=== PATIENT | male | born 1950 | race African-American/Black ===

== ENCOUNTER 2020-12-13 11:03 | Emergency (ER) | payer OTHER ==
[~2020-12-13] VITALS: Ht 190.5 cm; Wt 90.0 kg
[~2020-12-13 11:03] MED LIST: AMLO5TAB88; CITA40TA11; CYCL7.5T25; GABA-529; HYDR25TA; PRAZ5CAP2; SIMV-43
[2020-12-13 12:27] LABS: BASOPHILS % 0.6 % (0.0-2.0); CHLORIDE 104 mEq/L (98-107); EOSINOPHILS % 0.1 % (0.0-5.0); HEMATOCRIT. 39.7 % (42.0-52.0); HEMOGLOBIN. 13.5 g/dL (14.0-18.0); MEAN CORPUSCULAR HEMOGLOBIN 26.7 pg (28.0-32.0); MEAN CORPUSCULAR VOLUME 78.8 fL (80.0-94.0); MEAN PLATELET VOLUME 8.2 fl (7.4-10.4); MONOCYTES % 0.8 % (2.0-8.0); NEUTROPHILS % 70.5 % (40.0-76.0); PLATELET 186 x1000/uL (130-400); RED BLOOD CELL COUNT 5.04 mill/uL (4.7-6.1); RED CELL DISTRIBUTION WIDTH 13.9 % (11.6-14.6)
[2020-12-13 14:17] VITALS: BP 137/70
== END 2020-12-13 14:23 | disposition home or self-care (01) ==
LOC: ER 11:30
DX: R55 Syncope and collapse (principal); I10 Essential (primary) hypertension; Z88.0 Allergy status to penicillin; Z79.899 Other long term (current) drug therapy; Z85.118 Personal history of other malignant neoplasm of bronchus and lung
CPT/HCPCS: 36415; 71045; 80053; 83880; 84484; 85025; 93005; 99285

== ENCOUNTER 2020-12-16 13:01 | Inpatient (IN) | payer MEDICARE, OTHER ==
[~2020-12-16] VITALS: Ht 182.9 cm; Wt 90.3 kg
[2020-12-16] MEDS ORDERED: SODIUM CHLORIDE 0.9% 1,000 ML IV ONE (13:30)
[2020-12-16 14:07] LABS: CHLORIDE 99 mEq/L (98-107)
[2020-12-16 14:10] LABS: PROTHROMBIN TIME 10.3 sec (9.6-11.0)
[2020-12-16 14:12] LABS: EOSINOPHILS % 0.2 % (0.0-5.0); HEMATOCRIT. 34.4 % (42.0-52.0); HEMOGLOBIN. 11.8 g/dL (14.0-18.0); LYMPHOCYTES % 26.5 % (20.0-50.0); MEAN CORPUSCULAR HEMOGLOBIN 26.6 pg (28.0-32.0); MEAN CORPUSCULAR VOLUME 77.8 fL (80.0-94.0); MEAN PLATELET VOLUME 9.1 fl (7.4-10.4); MONOCYTES % 2.1 % (2.0-8.0); NEUTROPHILS % 70.2 % (40.0-76.0); PLATELET 141 x1000/uL (130-400); RED BLOOD CELL COUNT 4.43 mill/uL (4.7-6.1); RED CELL DISTRIBUTION WIDTH 13.9 % (11.6-14.6)
[2020-12-16] MEDS ORDERED: POTASSIUM CHLORIDE 20MEQ TABLET SR PO ONE (14:30)
[2020-12-16] MEDS ORDERED: POTASSIUM CHLORIDE INJ 40 MEQ in DEXT 5% WATER 250 ML IV ONE (14:30)
[2020-12-16] MEDS: SODIUM CHLORIDE 0.9% 1,000 ML IV SCH (16:45)
[2020-12-16] MEDS ORDERED: TRAMADOL 50MG TABLET PO PRN (16:45)
[2020-12-16] MEDS ORDERED: ONDANSETRON HCL 4MG/2ML INJ IV PRN (16:45)
[2020-12-16] MEDS ORDERED: NITROGLYCERIN 0.4MG TABLET SL SL PRN (16:45)
[2020-12-16] MEDS ORDERED: IPRATROPIUM/ALBUTEROL 0.5-3(2.5)MG/3ML NEB NEB PRN (16:45)
[2020-12-16] MEDS ORDERED: ACETAMINOPHEN 325MG TABLET PO PRN ×2 (16:45)
[2020-12-16] MEDS ORDERED: MAGNESIUM/ALUMINUM HYDROXIDE/SIMETHICONE 30ML UDC PO PRN (16:45)
[2020-12-16] MEDS ORDERED: DOCUSATE SODIUM 100MG CAPSULE PO PRN (16:45)
[2020-12-16] MEDS ORDERED: GUAIFENESIN 200MG/10ML SUGAR FREE UDC PO PRN (16:45)
[2020-12-16] MEDS ORDERED: ZOLPIDEM TARTRATE 5MG TABLET PO PRN (16:45)
[2020-12-16 17:09] LABS: T4 FREE 1.24 ng/dL (0.76-1.46)
[2020-12-16 17:40] LABS: VITAMIN B12 SERUM 397 pg/mL (211-911)
[2020-12-16 17:49] LABS: FOLIC ACID (FOLATE) SERUM > 20.00 ng/mL (>5.38)
[2020-12-16] MEDS: ENOXAPARIN 40MG/0.4ML SYR SUBCUT SCH (18:16)
[2020-12-16] MEDS: ASCORBIC ACID 500 MG TABLET PO SCH (21:38)
[2020-12-16 22:15] VITALS: BP 143/74
[2020-12-17] VITALS: BP 136/52
[2020-12-17 01:12] LABS: CREATINE KINASE 159 IU/L (39-308)
[2020-12-17 01:13] LABS: CREATINE KINASE MB FRACTION < 1.0 ng/mL (0.5-3.6)
[2020-12-17] MEDS: SODIUM CHLORIDE 0.9% 1,000 ML IV SCH ×2 (02:08→21:10)
[2020-12-17 04:00] VITALS: BP 126/56
[2020-12-17 06:21] LABS: HEMATOCRIT. 32.6 % (42.0-52.0); HEMOGLOBIN. 11.2 g/dL (14.0-18.0); MEAN CORPUSCULAR HEMOGLOBIN 26.7 pg (28.0-32.0); MEAN CORPUSCULAR VOLUME 77.4 fL (80.0-94.0); MEAN PLATELET VOLUME 8.9 fl (7.4-10.4); PLATELET 138 x1000/uL (130-400); RED BLOOD CELL COUNT 4.21 mill/uL (4.7-6.1); RED CELL DISTRIBUTION WIDTH 14.2 % (11.6-14.6)
[2020-12-17 06:27] LABS: CHLORIDE 102 mEq/L (98-107)
[2020-12-17 06:39] LABS: PHOSPHORUS 2.1 mg/dL (2.5-4.9)
[2020-12-17 06:40] LABS: CREATINE KINASE 158 IU/L (39-308)
[2020-12-17 06:44] LABS: CREATINE KINASE MB FRACTION < 1.0 ng/mL (0.5-3.6)
[2020-12-17] MEDS ORDERED: TIOT4MIS3 IH (07:09)
[2020-12-17] MEDS ORDERED: TRAZ-252 PO (07:09)
[2020-12-17 08:00] VITALS: BP 149/74
[2020-12-17] MEDS: CLOPIDOGREL 75MG TABLET PO SCH (09:27)
[2020-12-17] MEDS: ZINC SULFATE 220 MG ( 50 ) CAPSULE PO SCH (09:27)
[2020-12-17] MEDS: PANTOPRAZOLE SODIUM 40 MG/VIAL IV SCH (09:27)
[2020-12-17] MEDS: CHOLECALCIFEROL (D3) 1000 UNIT TABLET PO SCH (09:28)
[2020-12-17] MEDS: ASCORBIC ACID 500 MG TABLET PO SCH ×2 (09:28→21:10)
[2020-12-17] MEDS ORDERED: POTASSIUM PHOS,M-BASIC-D-BASIC 20 MMOL in DEXT 5% WATER 243.3333 ML IV SCH (11:00)
[2020-12-17 12:00] VITALS: BP 138/77
[2020-12-17 12:52] LABS: NUCLEATED RED BLOOD CELLS 1 /100 WBC; PLATELET ESTIMATE NORMAL
[2020-12-17] MEDS ORDERED: KCL 20MEQ/100ML PREMIX 100 ML IV SCH (15:00)
[2020-12-17 16:00] VITALS: BP 165/75
[2020-12-17] MEDS: ENOXAPARIN 40MG/0.4ML SYR SUBCUT SCH (17:04)
[2020-12-17] MEDS: CLONIDINE 0.1MG TABLET PO PRN (17:05)
[2020-12-17 20:00] VITALS: BP 146/76
[2020-12-17] MEDS ORDERED: FILGRASTIM 300 MCG/ML VIAL SUBCUT SCH (21:00)
[2020-12-17] MEDS: FILGRASTIM-TBO 300 MCG/0.5 ML SYRINGE SQ SCH (21:28)
[2020-12-18] VITALS: BP 124/77
[2020-12-18 04:00] VITALS: BP 117/60
[2020-12-18 06:15] LABS: CHLORIDE 107 mEq/L (98-107)
[2020-12-18 06:24] LABS: PHOSPHORUS 2.5 mg/dL (2.5-4.9)
[2020-12-18 06:27] LABS: HEMOGLOBIN. 11.1 g/dL (14.0-18.0); MEAN CORPUSCULAR HEMOGLOBIN 26.2 pg (28.0-32.0); MEAN CORPUSCULAR VOLUME 78.2 fL (80.0-94.0); MEAN PLATELET VOLUME 8.5 fl (7.4-10.4); RED BLOOD CELL COUNT 4.22 mill/uL (4.7-6.1); RED CELL DISTRIBUTION WIDTH 13.9 % (11.6-14.6)
[2020-12-18] MEDS: PANTOPRAZOLE SODIUM 40 MG/VIAL IV SCH (08:25)
[2020-12-18] MEDS: ZINC SULFATE 220 MG ( 50 ) CAPSULE PO SCH (08:25)
[2020-12-18] MEDS: CHOLECALCIFEROL (D3) 1000 UNIT TABLET PO SCH (08:25)
[2020-12-18] MEDS: CLOPIDOGREL 75MG TABLET PO SCH (08:25)
[2020-12-18] MEDS: ASCORBIC ACID 500 MG TABLET PO SCH ×2 (08:25→20:28)
[2020-12-18 12:00] VITALS: BP 148/74
[2020-12-18] MEDS: SODIUM CHLORIDE 0.9% 1,000 ML IV SCH ×2 (12:16→22:05)
[2020-12-18 16:00] VITALS: BP 151/61
[2020-12-18 16:36] LABS: PLATELET ESTIMATE NORMAL
[2020-12-18 16:40] LABS: PLATELET 155 x1000/uL (130-400)
[2020-12-18] MEDS: ENOXAPARIN 40MG/0.4ML SYR SUBCUT SCH (17:07)
[2020-12-18 20:00] VITALS: BP 163/71
[2020-12-18] MEDS: CLONIDINE 0.1MG TABLET PO PRN (20:27)
[2020-12-18] MEDS: FAMOTIDINE 20MG/2ML VIAL IV SCH (21:00)
[2020-12-18] MEDS: FILGRASTIM-TBO 300 MCG/0.5 ML SYRINGE SQ SCH (22:15)
[2020-12-19] VITALS: BP 133/56
[2020-12-19 04:00] VITALS: BP 155/75
[2020-12-19 08:14] VITALS: BP 162/74
[2020-12-19] MEDS: CLOPIDOGREL 75MG TABLET PO SCH (08:56)
[2020-12-19] MEDS: CHOLECALCIFEROL (D3) 1000 UNIT TABLET PO SCH (08:56)
[2020-12-19] MEDS: ASCORBIC ACID 500 MG TABLET PO SCH (08:56)
[2020-12-19] MEDS: ZINC SULFATE 220 MG ( 50 ) CAPSULE PO SCH (08:56)
[2020-12-19] MEDS: FAMOTIDINE 20MG/2ML VIAL IV SCH (09:19)
[2020-12-19 10:07] VITALS: BP 162/74
== END 2020-12-19 12:07 | disposition home or self-care (01) | DRG 64 ==
LOC: ER 14:08 → 6WST 15:08 → EDBEDREQTM 15:10 → EDBEDREQ 15:10 → ENRESERV 21:11 → 6WST 23:00
PROVIDERS: ADMIT Internal Medicine; ATTEND Internal Medicine
DX: I63.9 Cerebral infarction, unspecified (principal); N17.0 Acute kidney failure with tubular necrosis; E44.1 Mild protein-calorie malnutrition; E87.1 Hypo-osmolality and hyponatremia; C18.9 Malignant neoplasm of colon, unspecified; C34.90 Malignant neoplasm of unspecified part of unspecified bronchus or lung; E83.51 Hypocalcemia; E87.6 Hypokalemia; I10 Essential (primary) hypertension; D63.8 Anemia in other chronic diseases classified elsewhere; E78.00 Pure hypercholesterolemia, unspecified; G62.9 Polyneuropathy, unspecified; Z68.27 Body mass index [BMI] 27.0-27.9, adult
CPT/HCPCS: 36415; 70544; 70551; 71045; 80053; 80061; 82550; 82553; 82607; 82746; 83036; 83540; 83550; 83735; 84100; 84439; 84443; 84484; 85025; 93005; 93306; 93880; 93970; 97116; 97162; 97166; 99291; C9113; J1442; J1650; J3480; J3490; J7030; J7060